=== PATIENT | female | born 1990 | race Caucasian/White ===

== ENCOUNTER 2016-11-21 21:56 | Emergency (ER) | payer MEDICAID ==
[~2016-11-21] VITALS: Ht 170.2 cm; Wt 52.6 kg
[~2016-11-21 21:56] MED LIST: CEPH500C2 PO; TYL160/5 PO
[2016-11-21 22:10] VITALS: BP 127/79; PULSE 68; RESP 18; TEMP 97.9; O2SAT 98
--- NOTE | 2016-11-21 22:22 | NUR ---
Patient to ER bed 07 to gown for evaluation. Side rails up. Report given to Jericho
--- NOTE | 2016-11-21 22:34 | NUR ---
Patient to ER C/O skin rash. Patient states that she went to the cinema and shortly after the movie started she felt "creepy crawlies, skin itching and burning pain" on lower back, shoulders and forearms. AAOx4, unlabored breathing, no signs of acute distress.
--- NOTE | 2016-11-21 22:50 | NUR ---
ER MD Tang at bedside evaluating the patient
[2016-11-21] MEDS ORDERED: FAMOTIDINE 20 MG TABLET PO ONE (23:15)
[2016-11-21 23:36] VITALS: BP 124/75; PULSE 71; RESP 18; TEMP 97.9; O2SAT 99
--- NOTE | 2016-11-21 23:36 | NUR ---
Patient given written and verbal discharge instructions and verbalizes understanding. ER MD RICARDO discussed with patient the results and treatment provided. Patient in stable condition. ID arm band removed. Rx of benadryl & pepcid given. Patient educated on pain management and to follow up with PMD. Pain Scale 0/10. Opportunity for questions provided and answered.
== END 2016-11-21 23:36 | disposition home or self-care (01) ==
LOC: SED 21:56
DX: L50.9 Urticaria, unspecified (principal)
CPT/HCPCS: 81025; 99282

== ENCOUNTER 2017-09-11 18:00 | Emergency (ER) | payer MEDICAID ==
[~2017-09-11] VITALS: Ht 167.6 cm; Wt 54.4 kg
[2017-09-11 18:11] VITALS: BP_SYST 103
[2017-09-11 23:55] VITALS: BP_SYST 90
[2017-09-12] MEDS ORDERED: ACETAMINOPHEN 500 MG TABLET PO ONE
== END 2017-09-11 23:55 | disposition home or self-care (01) ==
LOC: SED 18:00
DX: J40 Bronchitis, not specified as acute or chronic (principal)
CPT/HCPCS: 36415; 81025; 86710; 99284